=== PATIENT | female | born 2000 | race Caucasian/White ===

== ENCOUNTER 2018-11-26 22:43 | Emergency (ER) | payer OTHER ==
[~2018-11-26] VITALS: Ht 167.6 cm; Wt 79.5 kg
[~2018-11-26 22:43] MED LIST: AMOXICILLIN500 MG PO
[2018-11-26] MEDS ORDERED: CLARITIN10 M2 PO (23:01)
[2018-11-26] MEDS ORDERED: SINGULAIR10 MG PO (23:01)
[2018-11-26] MEDS ORDERED: PROVENTIL108 MCG/AC IN (23:24)
[2018-11-26 23:30] VITALS: BP 140/89
== END 2018-11-26 23:30 | disposition home or self-care (01) ==
LOC: ED 22:43
DX: J45.909 Unspecified asthma, uncomplicated (principal); F17.210 Nicotine dependence, cigarettes, uncomplicated

== ENCOUNTER 2021-07-24 16:55 | Emergency (ER) | payer OTHER ==
[~2021-07-24] VITALS: Ht 160 cm; Wt 111.5 kg
[~2021-07-24 16:55] MED LIST changes: +CLARITIN10 M2 PO; +PROVENTIL108 MCG/AC IN; +SINGULAIR10 MG PO
[2021-07-24 17:03] VITALS: BP 145/108
[2021-07-24 17:04] VITALS: BP 133/106
[2021-07-24 17:30] VITALS: BP 135/105
[2021-07-24] MEDS ORDERED: TOBREX OPTH5 ML/BTL OU (17:30)
[2021-07-24 17:39] VITALS: BP 135/105
== END 2021-07-24 17:45 | disposition home or self-care (01) ==
LOC: ED 16:55
DX: H10.9 Unspecified conjunctivitis (principal); F17.200 Nicotine dependence, unspecified, uncomplicated

== ENCOUNTER 2021-12-18 18:06 | Emergency (ER) | payer OTHER ==
[2021-12-18] VITALS (8 sets, daily range): BP systolic 122–136; BP diastolic 88–105
[~2021-12-18] VITALS: Ht 160 cm; Wt 113.1 kg
[~2021-12-18 18:06] MED LIST changes: +TOBREX OPTH5 ML/BTL OU
[2021-12-18] MEDS ORDERED: CLEOCIN300 MG PO (19:04)
[2021-12-18] MEDS ORDERED: CLARITIN10 M2 PO (19:04)
== END 2021-12-18 19:45 | disposition home or self-care (01) ==
LOC: ED 18:06
DX: J02.9 Acute pharyngitis, unspecified (principal); I10 Essential (primary) hypertension; E78.5 Hyperlipidemia, unspecified; F17.210 Nicotine dependence, cigarettes, uncomplicated; Z20.822 Contact with and (suspected) exposure to COVID-19

== ENCOUNTER 2022-01-03 17:16 | Emergency (ER) | payer OTHER ==
[~2022-01-03] VITALS: Ht 160 cm; Wt 113.6 kg
[~2022-01-03 17:16] MED LIST changes: +CLEOCIN300 MG PO
[2022-01-03 19:30] VITALS: BP 126/90
[2022-01-03 19:45] VITALS: BP 124/88
[2022-01-03 22:17] VITALS: BP 124/88
== END 2022-01-03 22:39 | disposition home or self-care (01) | DRG 552 ==
LOC: ED 17:16
DX: S16.1XXA Strain of muscle, fascia and tendon at neck level, initial encounter (principal); S29.012S Strain of muscle and tendon of back wall of thorax, sequela; S39.012A Strain of muscle, fascia and tendon of lower back, initial encounter; I10 Essential (primary) hypertension; E78.5 Hyperlipidemia, unspecified; F17.200 Nicotine dependence, unspecified, uncomplicated; V49.50XA Passenger injured in collision with unspecified motor vehicles in traffic accident, initial encounter

== ENCOUNTER 2022-02-08 21:10 | Emergency (ER) | payer OTHER ==
[2022-02-08] VITALS (9 sets, daily range): BP systolic 128–140; BP diastolic 85–95
[~2022-02-08] VITALS: Ht 160 cm; Wt 113.6 kg
[2022-02-08] MEDS ORDERED: AMLODIPINE BESYL5 MG PO (21:32)
[2022-02-08] MEDS ORDERED: BENADRY2 EX (23:11)
[2022-02-08] MEDS ORDERED: BACTRIM DS1 TAB PO (23:11)
== END 2022-02-08 23:25 | disposition home or self-care (01) ==
LOC: ED 21:10
DX: S90.561A Insect bite (nonvenomous), right ankle, initial encounter (principal); I10 Essential (primary) hypertension; E78.5 Hyperlipidemia, unspecified; F17.210 Nicotine dependence, cigarettes, uncomplicated; F17.290 Nicotine dependence, other tobacco product, uncomplicated; W57.XXXA Bitten or stung by nonvenomous insect and other nonvenomous arthropods, initial encounter

== ENCOUNTER 2022-02-15 19:21 | Emergency (ER) | payer OTHER ==
[~2022-02-15] VITALS: Ht 160 cm; Wt 113.6 kg
[~2022-02-15 19:21] MED LIST changes: +AMLODIPINE BESYL5 MG PO; +BACTRIM DS1 TAB PO; +BENADRY2 EX
[2022-02-15] MEDS ORDERED: PREDNISONE50 MG PO (22:00)
[2022-02-15] MEDS ORDERED: ZYRTEC10 MG PO (22:00)
[2022-02-15 22:32] VITALS: BP 142/104
== END 2022-02-15 22:52 | disposition home or self-care (01) ==
LOC: ED 19:21
DX: H10.13 Acute atopic conjunctivitis, bilateral (principal); J30.9 Allergic rhinitis, unspecified; I10 Essential (primary) hypertension; E78.5 Hyperlipidemia, unspecified; F17.200 Nicotine dependence, unspecified, uncomplicated

== ENCOUNTER 2022-03-03 17:15 | Emergency (ER) | payer OTHER ==
[~2022-03-03] VITALS: Ht 160 cm; Wt 117.0 kg
[2022-03-03] VITALS (8 sets, daily range): BP systolic 127–140; BP diastolic 88–101
[~2022-03-03 17:15] MED LIST changes: +PREDNISONE50 MG PO; +ZYRTEC10 MG PO
[2022-03-03] MEDS ORDERED: PROZAC20 MG PO (17:51)
[2022-03-03 18:00] LABS: BASO% 0.8 % (0-3); EOS% 7.3 % (0-8); IMMATURE GRANULOCYTES 0.1 % (0.0-5.0); LYMPH% 27.9 % (15-41); MEAN CELL VOLUME 80.6 fL CALC (80.0-100.0); MEAN CORPUSCULAR HGB CONC 33.5 g/dL CAL (32.0-36.0); MONO% 8.1 % (2-13); NEUT# 4.43 thou/uL (2.00-7.15); NEUT% 55.8 % (42-76); RED BLOOD COUNT 4.07 mill/uL (4.20-5.60)
[2022-03-03 18:01] LABS: HEMATOCRIT 32.8 % (37.0-47.0)
[2022-03-03 18:31] LABS: ALBUMIN 4.4 g/dL (3.2-5.0); ALKALINE PHOSPHATASE 82 u/l (38-126); ANION GAP 10 (6-22 (CALC)); BUN 10 mg/dL (7-17); BUN/CREATININE RATIO 20 (12-20 (CALC)); CARBON DIOXIDE 27 mmol/l (22-30); CHLORIDE 107 mmol/l (95-108); CREATININE 0.5 mg/dL (0.5-1.0); GFR FOR AFR.AMER. > 60 ML/MIN (>=60 (CALC)); GFR OTHER RACES > 60 ML/MIN (>=60 (CALC)); POTASSIUM 3.6 mmol/l (3.5-5.1); SODIUM 141 mmol/l (137-146); TOTAL PROTEIN 7.2 g/dL (6.3-8.2)
[2022-03-03 18:40] LABS: BILIRUBIN, TOTAL 0.4 mg/dL (0.0-1.4); SGOT/AST 53 u/l (14-36)
== END 2022-03-03 18:55 | disposition home or self-care (01) ==
LOC: ED 17:15
PROVIDERS: Family Medicine
DX: K92.1 Melena (principal); I10 Essential (primary) hypertension; E78.5 Hyperlipidemia, unspecified; E66.9 Obesity, unspecified; F17.290 Nicotine dependence, other tobacco product, uncomplicated

== ENCOUNTER 2022-03-22 02:14 | Emergency (ER) | payer OTHER ==
[~2022-03-22] VITALS: Ht 160 cm; Wt 119.7 kg
[~2022-03-22 02:14] MED LIST changes: +PROZAC20 MG PO
[2022-03-22 02:33] VITALS: BP 152/116
[2022-03-22 02:45] VITALS: BP 152/112
[2022-03-22 03:29] LABS: BASO% 0.6 % (0-3); EOS% 5.1 % (0-8); HEMATOCRIT 34.1 % (37.0-47.0); HEMOGLOBIN 11.2 g/dl (12.0-16.0); IMMATURE GRANULOCYTES 0.1 % (0.0-5.0); LYMPH% 15.2 % (15-41); MEAN CELL VOLUME 81.2 fL CALC (80.0-100.0); MEAN CORPUSCULAR HGB 26.7 pG CALC (26.0-32.0); MEAN CORPUSCULAR HGB CONC 32.8 g/dL CAL (32.0-36.0); MONO% 6.7 % (2-13); NEUT# 8.86 thou/uL (2.00-7.15); NEUT% 72.3 % (42-76); RED BLOOD COUNT 4.2 mill/uL (4.20-5.60); RED CELL DISTRI WIDTH 12.9 % (11.5-15.5)
[2022-03-22 03:36] LABS: URINE BILIRUBIN - DIPSTICK NEGATIVE (NEGATIVE); URINE BLOOD DIPSTICK NEGATIVE (NEGATIVE); URINE COLOR YELLOW; URINE GLUCOSE - DIPSTICK NEGATIVE (NEGATIVE); URINE KETONE NEGATIVE (NEGATIVE); URINE LEUK ESTERASE NEGATIVE (NEGATIVE); URINE NITRITE - DIPSTICK NEGATIVE (Negative); URINE PH 7.5 (4.5-8.0); URINE PROTEIN - DIPSTICK NEGATIVE (NEG-TRACE); URINE UROBILINOGEN - DIPSTICK 0.2 E.U./dL (0.2)
[2022-03-22 03:41] LABS: ALBUMIN 4.5 g/dL (3.2-5.0); ALKALINE PHOSPHATASE 102 u/l (38-126); ANION GAP 10 (6-22 (CALC)); BUN 10 mg/dL (7-17); BUN/CREATININE RATIO 24 (12-20 (CALC)); CARBON DIOXIDE 26 mmol/l (22-30); CHLORIDE 108 mmol/l (95-108); CREATININE 0.4 mg/dL (0.5-1.0); GFR FOR AFR.AMER. > 60 ML/MIN (>=60 (CALC)); GFR OTHER RACES > 60 ML/MIN (>=60 (CALC)); SGOT/AST 33 u/l (14-36); SODIUM 140 mmol/l (137-146); TOTAL PROTEIN 7.5 g/dL (6.3-8.2)
[2022-03-22 03:44] LABS: BILIRUBIN, TOTAL 0.2 mg/dL (0.0-1.4)
[2022-03-22] MEDS ORDERED: FLONASE AL50 MCG/ACT (04:58)
[2022-03-22] MEDS ORDERED: ZITHROMAX250 MG PO (04:58)
[2022-03-22] MEDS ORDERED: CLARITIN10 M2 PO (04:58)
[2022-03-22 05:02] VITALS: BP 152/112
== END 2022-03-22 05:11 | disposition home or self-care (01) ==
LOC: ED 02:14
PROVIDERS: Emergency Medicine
DX: J06.9 Acute upper respiratory infection, unspecified (principal); I10 Essential (primary) hypertension; E78.5 Hyperlipidemia, unspecified; F17.200 Nicotine dependence, unspecified, uncomplicated

== ENCOUNTER 2022-04-17 06:40 | Day surgery (SDC) | payer OTHER ==
[~2022-04-17] VITALS: Ht 160 cm; Wt 113.4 kg
[~2022-04-17 06:40] MED LIST changes: +AFRIN 12 HOUR0.051; +BENADRYL 25MG C25 MG PO; +ELAVIL25 M1 PO; +FLONASE AL50 MCG/ACT; +HYDROXYZ HCL10 MG PO; +WELLBUTRIN XL150 MG PO; +ZITHROMAX250 MG PO
[2022-04-17 09:21] VITALS: BP 112/80
== END 2022-04-17 08:40 | disposition home or self-care (01) ==
LOC: ENDO 06:40 → ORM 07:30 → ENDO 08:40 → ORM 11:30
PROVIDERS: ATTEND Internal Medicine Gastroenterology
DX: K62.5 Hemorrhage of anus and rectum (principal); K64.8 Other hemorrhoids; Z80.0 Family history of malignant neoplasm of digestive organs

== ENCOUNTER 2022-05-05 12:17 | Emergency (ER) | payer OTHER ==
[~2022-05-05] VITALS: Ht 160 cm; Wt 118.8 kg
[2022-05-05] VITALS (10 sets, daily range): BP systolic 120–148; BP diastolic 80–106
[2022-05-05 13:13] LABS: URINE BILIRUBIN - DIPSTICK NEGATIVE (NEGATIVE); URINE BLOOD DIPSTICK TRACE-LYSED (NEGATIVE); URINE COLOR YELLOW; URINE GLUCOSE - DIPSTICK NEGATIVE (NEGATIVE); URINE KETONE NEGATIVE (NEGATIVE); URINE LEUK ESTERASE NEGATIVE (NEGATIVE); URINE PROTEIN - DIPSTICK NEGATIVE (NEG-TRACE); URINE SPECIFIC GRAVITY 1.015; URINE UROBILINOGEN - DIPSTICK 0.2 E.U./dL (0.2)
[2022-05-05 13:14] LABS: URINE NITRITE - DIPSTICK NEGATIVE (Negative)
[2022-05-05] MEDS ORDERED: ONDANSETRON4 MG PO (14:42)
[2022-05-05] MEDS ORDERED: PAXLOVID PO (14:42)
== END 2022-05-05 15:35 | disposition home or self-care (01) ==
LOC: ED 12:17
PROVIDERS: Nurse Practitioner
DX: U07.1 COVID-19 (principal); R50.9 Fever, unspecified; J02.9 Acute pharyngitis, unspecified; R05.9 Cough, unspecified; R11.2 Nausea with vomiting, unspecified; M79.10 Myalgia, unspecified site; I10 Essential (primary) hypertension; E78.5 Hyperlipidemia, unspecified; F17.290 Nicotine dependence, other tobacco product, uncomplicated

== ENCOUNTER 2022-06-23 22:03 | Emergency (ER) | payer OTHER ==
[~2022-06-23] VITALS: Ht 160 cm; Wt 122.0 kg
[~2022-06-23 22:03] MED LIST changes: +ONDANSETRON4 MG PO; +PAXLOVID PO
[2022-06-23 22:21] VITALS: BP 136/99
[2022-06-23 22:30] VITALS: BP 136/94
[2022-06-23] MEDS ORDERED: TRIAMCINOLON0.13 EX (22:34)
[2022-06-23 22:45] VITALS: BP 129/89
[2022-06-23 22:47] VITALS: BP 129/89
== END 2022-06-23 23:00 | disposition home or self-care (01) ==
LOC: ED 22:03
DX: L25.8 Unspecified contact dermatitis due to other agents (principal); R60.0 Localized edema; I10 Essential (primary) hypertension; E78.5 Hyperlipidemia, unspecified; F17.200 Nicotine dependence, unspecified, uncomplicated

== ENCOUNTER 2022-11-15 07:39 | Emergency (ER) | payer SELFPAY ==
[~2022-11-15] VITALS: Ht 160 cm; Wt 119.2 kg
[~2022-11-15 07:39] MED LIST changes: +TRIAMCINOLON0.13 EX
[2022-11-15 08:23] VITALS: BP 142/98
[2022-11-15 08:27] LABS: BASO% 0.8 % (0-3); HEMATOCRIT 37.8 % (37.0-47.0); HEMOGLOBIN 11.9 g/dl (12.0-16.0); IMMATURE GRANULOCYTES 0.1 % (0.0-5.0); LYMPH% 25.3 % (15-41); MEAN CELL VOLUME 81.5 fL CALC (80.0-100.0); MEAN CORPUSCULAR HGB 25.6 pG CALC (26.0-32.0); MEAN CORPUSCULAR HGB CONC 31.5 g/dL CAL (32.0-36.0); MONO% 7.5 % (2-13); NEUT# 6.1 thou/uL (2.00-7.15); NEUT% 62.3 % (42-76); RED BLOOD COUNT 4.64 mill/uL (4.20-5.60); RED CELL DISTRI WIDTH 13.8 % (11.5-15.5)
[2022-11-15 08:28] LABS: URINE BILIRUBIN - DIPSTICK Negative (NEGATIVE); URINE BLOOD DIPSTICK Negative (NEGATIVE); URINE COLOR Yellow; URINE GLUCOSE - DIPSTICK Negative (NEGATIVE); URINE KETONE Negative (NEGATIVE); URINE LEUK ESTERASE Negative (NEGATIVE); URINE NITRITE - DIPSTICK Negative (Negative); URINE PROTEIN - DIPSTICK Negative (NEG-TRACE); URINE SPECIFIC GRAVITY 1.025; URINE UROBILINOGEN - DIPSTICK 0.2 E.U./dL (0.2)
[2022-11-15 09:08] LABS: ANION GAP 13 (6-22 (CALC)); BUN 10 mg/dL (7-17); BUN/CREATININE RATIO 24 (12-20 (CALC)); CARBON DIOXIDE 24 mmol/l (22-30); CHLORIDE 106 mmol/l (95-108); CREATININE 0.4 mg/dL (0.5-1.0); GFR FOR AFR.AMER. > 60 ML/MIN (>=60 (CALC)); GFR OTHER RACES > 60 ML/MIN (>=60 (CALC)); POTASSIUM 4.2 mmol/l (3.5-5.1); SODIUM 139 mmol/l (137-146)
[2022-11-15 09:10] VITALS: BP 133/97
[2022-11-15 11:08] VITALS: BP 124/93
[2022-11-15 11:13] VITALS: BP 124/93
== END 2022-11-15 11:21 | disposition home or self-care (01) | DRG 552 ==
LOC: ED 07:39
PROVIDERS: Family Medicine
DX: M54.6 Pain in thoracic spine (principal); I10 Essential (primary) hypertension; E78.5 Hyperlipidemia, unspecified; F17.290 Nicotine dependence, other tobacco product, uncomplicated
CPT/HCPCS: Q9967

== ENCOUNTER 2023-09-02 17:06 | Emergency (ER) | payer OTHER ==
[~2023-09-02] VITALS: Ht 160 cm; Wt 104.3 kg
[~2023-09-02 17:06] MED LIST changes: +DICYCLOMINE HCL20 MG PO; +TAM75CAP PO; +ZPAK PO
[2023-09-02 17:17] VITALS: BP 128/82
[2023-09-02] MEDS ORDERED: ONDANSETRON 4 MG/TAB ODT SL ONE (17:20)
[2023-09-02] MEDS ORDERED: DiphenhydrAMINE HCL 50 MG/ML SDV IM ONE (17:30)
[2023-09-02] MEDS ORDERED: DEXAMETHASONE SOD. PHOSPHATE 10 MG/ML VIAL IV ONE (17:30)
[2023-09-02] MEDS ORDERED: ERYTHROMYCIN OPTHALMIC 5 MG/GM TUBE OD ONE (17:30)
[2023-09-02 17:31] VITALS: BP 125/73
[2023-09-02] MEDS ORDERED: FAMOTIDINE 20 MG/TAB PO ONE (17:35)
[2023-09-02 17:45] VITALS: BP 114/82
[2023-09-02 18:00] VITALS: BP 119/72
[2023-09-02] MEDS ORDERED: PEPCID20 MG PO (18:07)
[2023-09-02] MEDS ORDERED: ERYTHROMYCIN O3.5 GM OD (18:07)
[2023-09-02] MEDS ORDERED: PATADAY0.1 % OD (18:07)
[2023-09-02] MEDS ORDERED: MEDDOSEPAK PO (18:07)
[2023-09-02 18:40] VITALS: BP 119/72
== END 2023-09-02 18:50 | disposition home or self-care (01) | DRG 125 ==
LOC: ED 17:06
DX: H10.11 Acute atopic conjunctivitis, right eye (principal); J30.9 Allergic rhinitis, unspecified; I10 Essential (primary) hypertension; E78.5 Hyperlipidemia, unspecified; F17.200 Nicotine dependence, unspecified, uncomplicated

== ENCOUNTER 2023-10-19 23:15 | Emergency (ER) | payer OTHER ==
[~2023-10-19] VITALS: Ht 160 cm; Wt 65.0 kg
[~2023-10-19 23:15] MED LIST changes: +ERYTHROMYCIN O3.5 GM OD; +MEDDOSEPAK PO; +PATADAY0.1 % OD; +PEPCID20 MG PO
[2023-10-19 23:22] VITALS: BP 121/80
[2023-10-19] MEDS ORDERED: ONDANSETRON HCl 4 MG/2 ML SDV IV STA (23:27)
[2023-10-19] MEDS ORDERED: SODIUM CHLORIDE 0.9% 1,000 ML IV STA (23:27)
[2023-10-19 23:31] VITALS: BP 107/61
[2023-10-19] MEDS ORDERED: ZOFRAN4 MG/TAB PO (23:33)
[2023-10-19 23:53] LABS: BASO% 0.4 % (0-3); EOS% 1.4 % (0-8); HEMATOCRIT 37.8 % (37.0-47.0); HEMOGLOBIN 12.5 g/dl (12.0-16.0); IMMATURE GRANULOCYTES 0.1 % (0.0-5.0); LYMPH% 20.1 % (15-41); MEAN CORPUSCULAR HGB 27.1 pG CALC (26.0-32.0); MEAN CORPUSCULAR HGB CONC 33.1 g/dL CAL (32.0-36.0); MONO% 7.6 % (2-13); NEUT# 9.6 thou/uL (2.00-7.15); NEUT% 70.4 % (42-76); RED BLOOD COUNT 4.61 mill/uL (4.20-5.60); RED CELL DISTRI WIDTH 12.9 % (11.5-15.5)
[2023-10-19 23:53] LABS: URINE BILIRUBIN - DIPSTICK Negative (NEGATIVE); URINE BLOOD DIPSTICK Negative (NEGATIVE); URINE GLUCOSE - DIPSTICK Negative (NEGATIVE); URINE KETONE Negative (NEGATIVE); URINE LEUK ESTERASE Negative (NEGATIVE); URINE NITRITE - DIPSTICK Negative (Negative); URINE PROTEIN - DIPSTICK Negative (NEG-TRACE)
[2023-10-19 23:54] LABS: URINE COLOR Yellow
[2023-10-20 00:04] VITALS: BP 113/67
[2023-10-20 00:05] LABS: ALBUMIN 4.8 g/dL (3.2-5.0); CREATININE 0.5 mg/dL (0.5-1.0); POTASSIUM 3.6 mmol/l (3.5-5.1); TOTAL PROTEIN 7.9 g/dL (6.3-8.2)
[2023-10-20 00:09] LABS: BILIRUBIN, TOTAL 0.7 mg/dL (0.02-1.3)
[2023-10-20 01:01] VITALS: BP 112/61
[2023-10-20] MEDS ORDERED: ONDANSETRON4 MG PO (01:03)
[2023-10-20 01:08] VITALS: BP 112/61
== END 2023-10-20 01:35 | disposition home or self-care (01) | DRG 833 ==
LOC: ED 23:15
PROVIDERS: Family Medicine
DX: O21.9 Vomiting of pregnancy, unspecified (principal); O10.919 Unspecified pre-existing hypertension complicating pregnancy, unspecified trimester; O99.330 Smoking (tobacco) complicating pregnancy, unspecified trimester; F17.200 Nicotine dependence, unspecified, uncomplicated; O99.280 Endocrine, nutritional and metabolic diseases complicating pregnancy, unspecified trimester; E78.5 Hyperlipidemia, unspecified; Z3A.00 Weeks of gestation of pregnancy not specified

== ENCOUNTER 2023-11-20 18:18 | Emergency (ER) | payer OTHER ==
[~2023-11-20] VITALS: Ht 160 cm; Wt 95.0 kg
[~2023-11-20 18:18] MED LIST changes: +ZOFRAN4 MG/TAB PO
[2023-11-20 18:30] VITALS: BP 120/84
[2023-11-20] MEDS ORDERED: ONDANSETRON HCl 4 MG/2 ML SDV IV ONE (18:45)
[2023-11-20] MEDS ORDERED: SODIUM CHLORIDE 0.9% 1,000 ML IV ONE (18:45)
[2023-11-20 18:53] LABS: BASO% 0.6 % (0-3); EOS% 3.3 % (0-8); HEMATOCRIT 38.1 % (37.0-47.0); HEMOGLOBIN 12.9 g/dl (12.0-16.0); IMMATURE GRANULOCYTES 0.4 % (0.0-5.0); MEAN CELL VOLUME 81.1 fL CALC (80.0-100.0); MEAN CORPUSCULAR HGB 27.4 pG CALC (26.0-32.0); MEAN CORPUSCULAR HGB CONC 33.9 g/dL CAL (32.0-36.0); MONO% 9.2 % (2-13); NEUT# 5.58 thou/uL (2.00-7.15); NEUT% 61.5 % (42-76); RED BLOOD COUNT 4.7 mill/uL (4.20-5.60); RED CELL DISTRI WIDTH 12.9 % (11.5-15.5)
[2023-11-20 18:57] LABS: URINE BILIRUBIN - DIPSTICK Negative (NEGATIVE); URINE BLOOD DIPSTICK Negative (NEGATIVE); URINE GLUCOSE - DIPSTICK Negative (NEGATIVE); URINE KETONE 15 mg/dL (NEGATIVE); URINE LEUK ESTERASE Trace (NEGATIVE); URINE NITRITE - DIPSTICK Negative (Negative); URINE PH 8.5 (4.5-8.0); URINE PROTEIN - DIPSTICK Negative (NEG-TRACE)
[2023-11-20 18:59] LABS: URINE COLOR Yellow
[2023-11-20 19:00] VITALS: BP 113/76
[2023-11-20] MEDS ORDERED: DiphenhydrAMINE HCL 50 MG/ML SDV IV ONE (19:00)
[2023-11-20] MEDS ORDERED: METOCLOPRAMIDE HCL 10 MG/2 ML SDV IV ONE (19:00)
[2023-11-20 19:05] LABS: ALBUMIN 4.4 g/dL (3.2-5.0); CREATININE 0.4 mg/dL (0.5-1.0); POTASSIUM 3.3 mmol/l (3.5-5.1); TOTAL PROTEIN 7.5 g/dL (6.3-8.2)
[2023-11-20 19:09] LABS: BILIRUBIN, TOTAL 1.2 mg/dL (0.02-1.3)
[2023-11-20 19:30] VITALS: BP 106/71
[2023-11-20 20:00] VITALS: BP 112/75
[2023-11-20] MEDS ORDERED: POTASSIUM CHLORIDE 20 MEQ/TAB PO ONE (20:20)
[2023-11-20 20:30] VITALS: BP 110/70
[2023-11-20] MEDS ORDERED: PROMETHAZINE HY25 M1 PO (21:04)
[2023-11-20 21:40] VITALS: BP 110/70
== END 2023-11-20 21:40 | disposition home or self-care (01) | DRG 832 ==
LOC: ED 18:18
PROVIDERS: Nurse Practitioner
DX: O21.0 Mild hyperemesis gravidarum (principal); O99.891 Other specified diseases and conditions complicating pregnancy; M79.18 Myalgia, other site; O10.911 Unspecified pre-existing hypertension complicating pregnancy, first trimester; Z3A.10 10 weeks gestation of pregnancy

== ENCOUNTER 2024-02-01 13:06 | Emergency (ER) | payer SELFPAY ==
[~2024-02-01] VITALS: Ht 160 cm; Wt 98.0 kg
[2024-02-01] VITALS (14 sets, daily range): BP systolic 99–134; BP diastolic 59–97
[~2024-02-01 13:06] MED LIST changes: +ALBUTEROL SUL0.083 % IN; +NEBULIZER NEB; +PROMETHAZINE HY25 M1 PO
[2024-02-01 14:56] LABS: URINE BLOOD DIPSTICK Negative (NEGATIVE); URINE GLUCOSE - DIPSTICK Negative (NEGATIVE); URINE KETONE 40 mg/dL (NEGATIVE); URINE LEUK ESTERASE Negative (NEGATIVE); URINE NITRITE - DIPSTICK Negative (Negative); URINE PROTEIN - DIPSTICK Trace mg/dL (NEG-TRACE); URINE SPECIFIC GRAVITY >=1.030; URINE UROBILINOGEN - DIPSTICK 0.2 E.U./dL (0.2)
[2024-02-01 14:59] LABS: BASO% 0.2 % (0-3); EOS% 0.6 % (0-8); HEMATOCRIT 38.1 % (37.0-47.0); HEMOGLOBIN 12.8 g/dl (12.0-16.0); IMMATURE GRANULOCYTES 0.2 % (0.0-5.0); LYMPH% 6.8 % (15-41); MEAN CORPUSCULAR HGB 29.1 pG CALC (26.0-32.0); MEAN CORPUSCULAR HGB CONC 33.6 g/dL CAL (32.0-36.0); MONO% 3.8 % (2-13); NEUT# 15.63 thou/uL (2.00-7.15); NEUT% 88.4 % (42-76); RED BLOOD COUNT 4.4 mill/uL (4.20-5.60); RED CELL DISTRI WIDTH 13.8 % (11.5-15.5)
[2024-02-01] MEDS ORDERED: SODIUM CHLORIDE 0.9% 1,000 ML IV ONE ×2 (15:00)
[2024-02-01] MEDS ORDERED: ONDANSETRON HCl 4 MG/2 ML SDV IV ONE (15:00)
[2024-02-01 15:01] LABS: MEAN CELL VOLUME 86.6 fL CALC (80.0-100.0)
[2024-02-01 15:17] LABS: ALBUMIN 4.4 g/dL (3.2-5.0); CREATININE 0.3 mg/dL (0.5-1.0); POTASSIUM 3.8 mmol/l (3.5-5.1); TOTAL PROTEIN 7.4 g/dL (6.3-8.2)
[2024-02-01 15:18] LABS: URINE COLOR Yellow
[2024-02-01] MEDS ORDERED: ZOFRAN4 MG/TAB PO (18:13)
== END 2024-02-01 18:22 | disposition home or self-care (01) | DRG 833 ==
LOC: ED 13:06
PROVIDERS: Family Medicine
DX: O26.892 Other specified pregnancy related conditions, second trimester (principal); R11.2 Nausea with vomiting, unspecified; R19.7 Diarrhea, unspecified; O16.2 Unspecified maternal hypertension, second trimester; O99.612 Diseases of the digestive system complicating pregnancy, second trimester; K80.20 Calculus of gallbladder without cholecystitis without obstruction; Z3A.21 21 weeks gestation of pregnancy

== ENCOUNTER 2024-03-24 10:33 | Emergency (ER) | payer OTHER ==
[2024-03-24] VITALS (7 sets, daily range): BP systolic 117–138; BP diastolic 81–97
[~2024-03-24] VITALS: Ht 160 cm; Wt 102.0 kg
== END 2024-03-24 13:20 | disposition home or self-care (01) ==
LOC: ED 10:33
DX: O36.8130 Decreased fetal movements, third trimester, not applicable or unspecified (principal); O10.913 Unspecified pre-existing hypertension complicating pregnancy, third trimester; O99.283 Endocrine, nutritional and metabolic diseases complicating pregnancy, third trimester; E78.5 Hyperlipidemia, unspecified; Z3A.29 29 weeks gestation of pregnancy